=== PATIENT | female | born 1950 | race Hispanic/Latino ===

== ENCOUNTER 2017-06-24 06:48 | Day surgery (SDC) | payer OTHER, MEDICARE ==
[2017-06-18 14:18] VITALS: BP 151/78
[2017-06-18 14:24] LABS: HEMATOCRIT 41.4 % (36-48); LYMPHOCYTES % (AUTO) 32.7 % (21.0-51.0); MEAN CORPUSCULAR HEMOGLOBIN 32.7 pg (27.0-33.0); MEAN CORPUSCULAR HGB CONC 33.8 g/dL (32.0-36.0); MEAN CORPUSCULAR VOLUME 96.8 fL (79-99); NEUTROPHILS % (AUTO) 48.3 % (40.0-77.0); NUCLEATED RED BLOOD CELLS 0.1 % (0.0-0.19); PLATELET COUNT (AUTO) 261 K/uL (130-400); RED BLOOD CELL COUNT(AUTO) 4.28 MIL/uL (4.00-5.50); RED CELL DISTRIBUTION WIDTH 13.4 % (11.0-15.5); WHITE BLOOD COUNT (AUTO) 6.1 K/uL (4.8-10.8)
[2017-06-18 14:28] LABS: APPEARANCE,URINE Clear (CLEAR); BILIRUBIN,URINE Negative (NEGATIVE); COLOR,URINE Yellow (YELLOW); GLUCOSE, URINE (UA) Negative (NEGATIVE); KETONES,URINE Negative (NEGATIVE); LEUKOCYTE ESTERASE ,URINE Negative (NEGATIVE); NITRATE,URINE Negative (NEGATIVE); OCCULT BLOOD,URINE Negative (NEGATIVE); PROTEIN,URINE Negative (NEGATIVE); UROBILINOGEN,URINE 0.2 mg/dL (0.2-1.0)
[2017-06-18 14:30] LABS: CREATININE 0.8 mg/dL (0.5-1.5)
[2017-06-18 14:34] LABS: INR 1.02 (0.85-1.15); PARTIAL THROMBOPLASTIN TIME 30.4 SEC (26.3-35.5); PROTHROMBIN TIME 10.7 SEC (9.6-11.6)
[~2017-06-24] VITALS: Ht 163.8 cm; Wt 78.9 kg
[2017-06-24] VITALS (16 sets, daily range): BP systolic 97–122; BP diastolic 54–73
[2017-06-24] MEDS: CEFAZOLIN SODIUM 1 GM VIAL IVP SCH ×2 (06:00→09:15)
[~2017-06-24 06:48] MED LIST: MULT1CAP32 PO
[2017-06-24] MEDS ORDERED: LACTATED RINGERS 1000ML 1,000 ML IV ONE (07:56)
[2017-06-24] MEDS ORDERED: WATER FOR INJECTION,STERILE 20 ML VIAL ONE (07:57)
[2017-06-24] MEDS: GENTAMICIN 80 MG/NS 100 ML PB 100 ML IV SCH ×2 (08:03→15:05)
[2017-06-24] MEDS ORDERED: LIDOCAINE 1%-EPI 1:100,000 20 ML VIAL IJ ONE (09:04)
[2017-06-24] MEDS ORDERED: OCTYL 2-CYANOACRYLATE 1 EACH TP ONE (09:04)
[2017-06-24] MEDS ORDERED: NEOMY SULF/POLYMYXIN B SULFATE 1 ML AMPUL IR ONE (09:04)
[2017-06-24] MEDS ORDERED: GLYCOPYRROLATE 0.2 MG/ML 5 ML VIAL ONE (09:10)
[2017-06-24] MEDS ORDERED: LIDOCAINE PF 2% 5ML ABBOJECT ONE (09:10)
[2017-06-24] MEDS ORDERED: ONDANSETRON HCL 4 MG/2 ML VIAL ONE (09:10)
[2017-06-24] MEDS ORDERED: DEXAMETHASONE SOD PHOSPHATE 10MG/ML 1ML VIAL ONE (09:10)
[2017-06-24] MEDS ORDERED: FENTANYL CITRATE PF 50 MCG/1 ML 2ML VIAL ONE ×2 (09:11→09:38)
[2017-06-24] MEDS ORDERED: PROPOFOL 10 MG/ML 20ML VIAL IV ONE (09:11)
[2017-06-24] MEDS ORDERED: MIDAZOLAM HCL 1 MG/ML 2ML VIAL ONE (09:11)
[2017-06-24] MEDS ORDERED: SULFANILAMIDE 120 GM TUBE VG ONE (10:09)
== END 2017-06-24 12:50 | disposition home or self-care (01) ==
LOC: DAH 06:48
PROVIDERS: ATTEND Urology
DX: N39.3 Stress incontinence (female) (male) (principal); Z90.710 Acquired absence of both cervix and uterus; Z98.890 Other specified postprocedural states; E66.9 Obesity, unspecified
CPT/HCPCS: 36415; 57288; 80048; 81003; 85025; 85610; 85730; 87088; 93005; A4215; A4344; C1771; J0690; J1100; J1580; J2001; J2250; J2405; J2704; J3010 ×2; J3490 ×3; J7120 ×2